=== PATIENT | female | born 1985 | race Caucasian/White ===

== ENCOUNTER → 2025-01-28 12:05 | Outpatient (REF) | payer OTHER, SELFPAY | LOC: PNTC 12:05 | PROVIDERS: ATTENDING PHYSICIAN Advanced Practice Midwife | DX: O09.33 Supervision of pregnancy with insufficient antenatal care, third trimester (principal); O09.523 Supervision of elderly multigravida, third trimester | CPT/HCPCS: 76816 ==

== ENCOUNTER 2025-02-16 16:56 | Observation (INO) | payer OTHER, SELFPAY ==
[2025-02-16 17:16] VITALS: BP 112/73; BMI 27.5
== END 2025-02-16 21:15 | disposition home or self-care (01) ==
LOC: LDRP 16:56
PROVIDERS: ADMITTING PHYSICIAN Advanced Practice Midwife
DX: O26.893 Other specified pregnancy related conditions, third trimester (principal); Z3A.35 35 weeks gestation of pregnancy; M54.9 Dorsalgia, unspecified; M25.552 Pain in left hip; W00.0XXA Fall on same level due to ice and snow, initial encounter; Y93.01 Activity, walking, marching and hiking; Y92.9 Unspecified place or not applicable
CPT/HCPCS: 85460; G0378